=== PATIENT | female | born 1975 | race Caucasian/White ===

== ENCOUNTER 2020-12-07 14:07 | Emergency (ER) | payer OTHER, SELFPAY ==
[2020-12-07 14:09] VITALS: BP 154/104; PULSE 97; RESP 16; TEMP 36.8; O2SAT 100; BMI 24.1
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
[2020-12-07] MEDS: HYDROcodone Bitartrate/Apap 5/325 Tablet PO ×2 (14:56→17:54)
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
[2020-12-07 17:01] VITALS: BP 154/91; PULSE 88; RESP 18; O2SAT 99
[2020-12-07] MEDS: Diphth,Pertuss(Acell),Tet Vac 0.5 ML Vial IM (17:07)
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
== END 2020-12-07 19:35 | disposition home or self-care (01) ==
LOC: ED 15:00
PROVIDERS: Emergency Provider Emergency Medicine; PCP Family Medicine
DX: S09.90XA Unspecified injury of head, initial encounter (principal); S20.212A Contusion of left front wall of thorax, initial encounter; V43.52XA Car driver injured in collision with other type car in traffic accident, initial encounter; S00.81XA Abrasion of other part of head, initial encounter; F17.210 Nicotine dependence, cigarettes, uncomplicated
CPT/HCPCS: 70450; 70486; 71101; 72125; 90471; 90715; 96372; 99285